=== PATIENT | male | born 1975 | race Caucasian/White ===

== ENCOUNTER 2017-12-15 08:26 | Emergency (ER) | payer MEDICAID ==
[~2017-12-15] VITALS: Ht 170.2 cm; Wt 96.6 kg
[2017-12-15 08:35] VITALS: BP 146/89
--- NOTE | 2017-12-15 08:40 | NUR ---
PT AMBULATED TO ER BED 04
--- NOTE | 2017-12-15 08:45 | NUR ---
Patient being evaluated by physician at bedside.
--- NOTE | 2017-12-15 08:45 | NUR ---
42y/m bib self c/o 3th and 4th digit on right hand laceration x 40 mins [employer]quet [employer]. Pt sts laceration occured due to moving a dresser today. Bleeding controlled. ER MD MADE AWARE OF PT STATUS.
[2017-12-15 09:32] VITALS: BP 145/98
--- NOTE | 2017-12-15 09:32 | NUR ---
Patient discharged with v/s stable. Written and verbal after care instructions given and explained. Patient verbalized understanding. Ambulatory with steady gait. All questions addressed prior to discharge. Advised to follow up with PMD.
== END 2017-12-15 09:32 | disposition home or self-care (01) ==
LOC: MED 08:26
DX: S61.214A Laceration without foreign body of right ring finger without damage to nail, initial encounter (principal); W45.8XXA Other foreign body or object entering through skin, initial encounter; Y93.89 Activity, other specified; Y92.099 Unspecified place in other non-institutional residence as the place of occurrence of the external cause; Y99.8 Other external cause status
CPT/HCPCS: 12001; 90471; 90715; 99283